=== PATIENT | female | born 1960 | race Caucasian/White ===

== ENCOUNTER → 2018-05-04 | Outpatient (CLI) | payer SELFPAY | END | disposition home or self-care (01) | LOC: LAB 15:59 → LAB SHORT 15:59 | DX: B99.9 Unspecified infectious disease (principal) | CPT/HCPCS: 87070; 87205 ==

== ENCOUNTER → 2022-04-11 | Outpatient (CLI) | payer OTHER | END | disposition home or self-care (01) | LOC: LAB 11:23 → LAB SHORT 11:23 | DX: R30.0 Dysuria (principal); R31.9 Hematuria, unspecified | CPT/HCPCS: 87077; 87086; 87186 ==

== ENCOUNTER → 2022-06-08 | Outpatient (CLI) | payer OTHER | END | disposition home or self-care (01) | LOC: LAB SHORT 18:13 → LAB 18:13 | DX: R31.9 Hematuria, unspecified (principal) | CPT/HCPCS: 87086 ==